=== PATIENT | female | born 1975 | race Caucasian/White ===

== ENCOUNTER 2017-05-19 11:27 | Inpatient (IN) | payer MEDICAID ==
[~2017-05-19] VITALS: Ht 165.1 cm; Wt 105.7 kg
[~2017-05-19 11:27] MED LIST: ALPR1TAB2 PO; [UNRECOGNIZED DRUG - CODE] PO
[2017-05-19 11:34] VITALS: BP 127/51
--- NOTE | 2017-05-19 11:46 | NUR ---
Pt taken to bed 7.
--- NOTE | 2017-05-19 12:04 | NUR ---
Patient being evaluated by Dr. Dubon at bedside.
--- NOTE | 2017-05-19 12:05 | NUR ---
42/F c/o headache x2 days and elevated blood sugar. BS 175 in triage. Pt c/o 6/10 pain. AOX4, ambulatory with steady gait. VSS.
[2017-05-19] MEDS ORDERED: ACETAMINOPHEN EXTRA STRENGTH 500 MG TAB PO ONE (12:10)
[2017-05-19 12:14] LABS: APPEARANCE,URINE CLEAR (CLEAR); BILIRUBIN,URINE NEGATIVE (NEGATIVE); BLOOD, URINE TRACE-I (NEGATIVE); COLOR,URINE YELLOW (YELLOW); LEUKOCYTE ESTERASE ,URINE NEGATIVE (NEGATIVE); NITRITE, URINE NEGATIVE (NEGATIVE); PROTEIN,URINE NEGATIVE (NEGATIVE); UGLUCOSE NEGATIVE (NEGATIVE); UROBILINOGEN,URINE 0.2 EU/dL (0.2 - 1)
[2017-05-19 12:22] LABS: ANION GAP 8.6 (8-16); CALCIUM 9.2 mg/dL (8.5-10.1); CARBON DIOXIDE 31.1 mmol/L (21-32); CREATININE 0.9 mg/dL (0.6-1.3); POTASSIUM 3.7 mmol/L (3.5-5.1)
[2017-05-19 12:24] LABS: BACTERIA,URINE OCCASSIONAL /HPF (None Seen); RBC,URINE 0-3 /HPF (0-5); WBC,URINE 0-2 /HPF (0-5)
--- NOTE | 2017-05-19 13:20 | NUR ---
Pt noted with an accucheck of 43. Dr. Dubon aware. Pt reports that prior to coming to ED her BS was 280 so she took a Glizpizde. Pt states "My doctor took me off of it but I took because my sugar was high." [place] juice given to patient. Pt drank 2 boxes of orange juice. Will continue to monitor patient. VSS.
--- NOTE | 2017-05-19 13:40 | NUR ---
Meal tray provided to patient.
[2017-05-19] MEDS ORDERED: NACL 0.9% 1,000 ML IV SCH (14:22)
--- NOTE | 2017-05-19 14:32 | NUR ---
X-Ray at bedside.
--- NOTE | 2017-05-19 14:32 | NUR ---
No nurse assigned to take report at this time. Room still being cleaned.
--- NOTE | 2017-05-19 15:02 | NUR ---
Patient will be admitted to care of Dr. Reza. Admited to TELE. Will go to room 112-B. Belongings list completed. Report to Charlene MERCEDES.
--- NOTE | 2017-05-19 15:07 | NUR ---
Pt transferred to Tele 112-B via [email or web address] on cardiac monitoring. All belongings sent with patient to room 112-A
[2017-05-19] MEDS ORDERED: DEXTROSE 50% 50 ML SYR IVP PRN (15:30)
[2017-05-19] MEDS ORDERED: BLOOD GLUCOSE MONITORING 1 DEV DEV FS SCH (15:30)
[2017-05-19 15:31] LABS: BASOPHILS # (AUTO) 0.5 K/uL (0.00-0.22); EOSINOPHILS # (AUTO) 0.2 K/uL (0-0.4); HEMATOCRIT 42.8 % (36-48); LYMPHOCYTES # (AUTO) 1.8 K/uL (2.5-16.5); MEAN CORPUSCULAR HEMOGLOBIN 30 pg (27-31); MEAN CORPUSCULAR HGB CONC 33 g/dL (33-37); MEAN CORPUSCULAR VOLUME 90 fL (80-94); MONOCYTES # (AUTO) 0.7 K/uL (0.8-1.0); NEUTROPHILS # (AUTO) 6.3 K/uL (1.8-7.7); PLATELET COUNT (AUTO) 242 K/uL (140-450); RED BLOOD CELL COUNT(AUTO) 4.75 MIL/uL (4.20-5.40); RED CELL DISTRIBUTION WIDTH 11.8 % (11.6-13.7); WHITE BLOOD COUNT (AUTO) 9.5 K/uL (4.8-10.8)
[2017-05-19] MEDS ORDERED: DEXT 5% / NACL 0.9% 500 ML IV SCH (15:35)
[2017-05-19 15:36] LABS: PARTIAL THROMBOPLASTIN TIME 23.2 secs (22-35.6); PROTHROMBIN TIME 10.2 secs (10.8-13.4)
--- NOTE | 2017-05-19 15:39 | NUR ---
RECEIVED PT FROM CHARGE NURSE REPORT. PT IN BED, AWAKE. ALERT ORIENTED X4. NO SOB, DENIES ANY PAIN OR DISCOMFORT AT THIS TIME. POSITIVE BOWEL SOUNDS NOTED ON FOUR QUADRANTS. PT AMBULATORY. SAFETY PRECAUTION IN PLACE. CALL LIGHT WITHIN REACH.
[2017-05-19 15:48] LABS: AMPHETAMINE, URINE NEG. ng/ml (NEG <=1000); BARBITURATE, URINE NEG. ng/ml (NEG <=200); BENZODIAZEPINE, URINE NEG. ng/mL (NEG <=200); CANNABINOID, URINE NEG. ng/mL (NEG <=50); COCAINE, URINE NEG. ng/mL (NEG <=300); OPIATE, URINE NEG. ng/mL (NEG <=2000); PHENCYCLIDINE SCREEN,URINE NEG. ng/mL (NEG <=25)
[2017-05-19 15:57] LABS: CHOL/HDL RATIO 3.1 (1-4.5); FREE T4 (FREE THYROXINE) 0.9 ng/dL (0.76-1.46); MAGNESIUM 2.1 mg/dL (1.8-2.4); PHOSPHORUS 3.6 mg/dL (2.5-4.9); THYROID STIMULATING HORMONE 2.21 uIU/mL (0.34-3.74)
[2017-05-19 16:00] VITALS: BP 148/76
[2017-05-19] MEDS: BLOOD GLUCOSE MONITORING 1 DEV DEV FS SCH ×4 (16:21→21:47)
[2017-05-19] MEDS ORDERED: ALPRAZolam 0.5 MG TAB PO SCH (19:20)
--- NOTE | 2017-05-19 19:42 | NUR ---
PT KEPT CLEAN DRY AND COMFORTABLE. NEEDS ATTENDED. NO SOB, DENIES ANY PAIN OR DISCOMFORT, DENIES ANY SIGNS AND SYMPTOMS OF HYPOGLYCEMIA. ENDORSED TO NEXT SHIFT ON STABLE CONDITION, FOR CONTINUITY OF CARE.
--- NOTE | 2017-05-19 19:43 | NUR ---
RECEIVED REPORT FROM AM NURSE. PT IN BED, AOX4, ABLE TO MAKE NEEDS KNOWN. NO COMPLAINTS OF PAIN AT THIS TIME. NO S/S OF DISTRESS. INITIAL ASSESSMENT DONE. WITH AN IV AT THE RIGHT AC 20, INTACT AND PATENT. DISCUSSED PLAN OF CARE WITH PATIENT, VERBALIZED UNDERSTANDING. WILL CONTINUE TO MONITOR. ALL NEEDS ATTENDED. CALL LIGHT WITHIN REACH.
[2017-05-19 20:00] VITALS: BP 131/61
--- NOTE | 2017-05-19 20:30 | NUR ---
INFORMED DR. CONTRERAS OF GLUCOSE [place], SAID THAT HE'D KEEP THE PT HYPERGLYCEMIC FOR RIGHT NOW. Addendum: 05/20/17 at 0110 by Buffy Blood RN ASKED IF THERE WAS AN INSULIN SCALE, SAID PT HAS BEEN HYPOGLYCEMIC FOR SOME TIME, SAID DEDRICK ORDER AN INSULIN SCALE.
[2017-05-19] MEDS: DOCUSATE SODIUM 100 MG GELCAP PO SCH (21:41)
--- NOTE | 2017-05-19 21:45 | NUR ---
DUE MEDS GIVEN, WELL TOLERATED. WILL CONTINUE TO MONITOR FOR ANY CHANGES.
[2017-05-20] VITALS: BP 108/62
--- NOTE | 2017-05-20 | NUR ---
VITAL SIGNS TAKEN, IN STABLE CONDITION. WILL CONTINUE TO MONITOR. ALL NEEDS ATTENDED. CALL LIGHT WITHIN REACH. SAFETY CHECKS IN PLACE.
[2017-05-20] MEDS: BLOOD GLUCOSE MONITORING 1 DEV DEV FS SCH ×5 (00:21→08:32)
--- NOTE | 2017-05-20 02:18 | NUR ---
MADE ROUNDS, PT IS ASLEEP. NO COMPLAINTS OF PAIN. NO S/S OF DISTRESS. WILL CONTINUE TO MONITOR. ALL NEEDS ATTENDED. CALL LIGHT WITHIN REACH.
[2017-05-20 04:00] VITALS: BP 109/54
--- NOTE | 2017-05-20 04:00 | NUR ---
VITAL SIGNS TAKEN. NO S/S OF DISTRESS. NO COMPLAINTS OF PAIN. WILL CONTINUE TO MONITOR. ALL NEEDS ATTENDED. CALL LIGHT WITHIN REACH.
--- NOTE | 2017-05-20 06:21 | NUR ---
MADE ROUNDS. PT ASLEEP, NO S/S OF DISTRESS. WILL CONTINUE TO MONITOR FOR ANY CHANGES.
--- NOTE | 2017-05-20 07:15 | NUR ---
ENDORSED TO AM SHIFT NURSE FOR CONTINUITY OF CARE, IN STABLE CONDITION.
--- NOTE | 2017-05-20 07:16 | NUR ---
RECEIVED PT IN BED. ASLEEP. AROUSABLE TO VOICE. ALERT ORIENTED X4. NO SOB DENIES ANY PAIN OF DISCOMFORT AT THIS TIME. DENIES ANY SIGNS AND SYMPTOMS OF HYPOGLYCEMIA NOTED. POSITIVE BOWEL SOUNDS NOTED ON FOUR QUADRANTS. SAFETY PRECAUTION IN PLACE. CALL LIGHT WITHIN REACH.
[2017-05-20 08:00] VITALS: BP 121/69
[2017-05-20] MEDS ORDERED: metFORMIN 500 MG TAB PO SCH (08:00)
--- NOTE | 2017-05-20 08:31 | NUR ---
PATIENT HAS BEEN SCREENED AND CATEGORIZED HIGH NUTRITION RISK. PATIENT WILL BE SEEN WITHIN 1-2 DAYS OF ADMISSION. 05/20/17-05/21/[address]
[2017-05-20] MEDS: DOCUSATE SODIUM 100 MG GELCAP PO SCH (08:33)
--- NOTE | 2017-05-20 08:35 | NUR ---
PT REFUSED TO TAKE COLACE SINCE SHE JUST HAD A BOWEL MOVEMENT THIS MORNING. SOFT IN CONSISTENCY.
[2017-05-20] MEDS ORDERED: BUPROPION HCL 100 MG PO SCH (09:00)
[2017-05-20] MEDS ORDERED: LORazepam 2 MG/ML VIAL IM/IVP SCH (11:17)
[2017-05-20 12:00] VITALS: BP 132/92
--- NOTE | 2017-05-20 12:23 | NUR ---
05/20/17 RD INITIAL ASSESSMENT COMPLETED PLEASE REFER TO NUTRITION ASSESSMENT UNDER CARE ACTIVITY FOR ESTIMATED NUTRITIONAL NEEDS. 1. CONTINUE 60 G CONSISTENT CARBOHYDRATE DIET 2. PROVIDE NUTRITION THERAPY EDUCATION NEEDED 3. RD TO FOLLOW-UP 3-5 DAYS; MODERATE RISK ANABELA LOVE RD
[2017-05-20] MEDS ORDERED: METF500T2 PO (13:02)
--- NOTE | 2017-05-20 14:00 | NUR ---
DISCHARGE INSTRUCTIONS AND TEACHINGS GIVEN, PROVIDED, AND EXPLAINED TO PT. REMINDED TO FOLLOW UP WITH PCP INDICATED ON DISCHARGE PAPERS. PT OFFERED TO HAVE PNA VACCINE, PT REFUSED. PT VERBALIZED UNDERSTANDING. SIGNED DISCHARGE PAPERS. NAME ARM BAND REMOVED. IV CANNULA REMOVED AND INTACT. PT REQUESTED TO CHECK HER BLOOD SUGAR BEFORE LEAVING. PRESCRIPTIONS PROVIDED. NO SOB NOTED DENIES ANY PAIN OR DISCOMFORT AT THIS TIME. PT WITH PAT AND DAUGHTER JOON. WHEELED PT OUTSIDE GOING TO THE PARKING LOT TO THEIR PRIVATE OWNED VEHICLE. PT DISCHARGED ON STABLE CONDITION.
== END 2017-05-20 14:00 | disposition home or self-care (01) | DRG 420 ==
LOC: MED 11:27 → MTU 14:28
PROVIDERS: ADMIT Family Medicine; ATTEND Family Medicine
DX: E11.649 Type 2 diabetes mellitus with hypoglycemia without coma (principal); D68.59 Other primary thrombophilia; E11.51 Type 2 diabetes mellitus with diabetic peripheral angiopathy without gangrene; I10 Essential (primary) hypertension; E66.9 Obesity, unspecified; Z68.38 Body mass index [BMI] 38.0-38.9, adult; Z79.899 Other long term (current) drug therapy; Z91.14 Patient's other noncompliance with medication regimen; Z72.89 Other problems related to lifestyle; Z28.21 Immunization not carried out because of patient refusal; Z79.84 Long term (current) use of oral hypoglycemic drugs
CPT/HCPCS: 36415; 71010; 80048; 80305; 81001; 81025; 82150; 82948; 83036; 83690; 83735; 84100; 84439; 84443; 85025; 85610; 85730; 87081; 93005; 99285; J7042; Q0092

== ENCOUNTER 2021-01-21 15:21 | Emergency (ER) | payer MEDICAID ==
[~2021-01-21] VITALS: Ht 165.1 cm; Wt 86.2 kg
[~2021-01-21 15:21] MED LIST changes: +METF500T2 PO; +[UNRECOGNIZED DRUG - CODE] PO; -[UNRECOGNIZED DRUG - CODE] PO
[2021-01-21 15:35] VITALS: BP 141/77
--- NOTE | 2021-01-21 15:42 | NUR ---
Pt wheelchair assisted from lobby to triage. BS 74. Pt given 2 [place] Juice boxes. made aware.
--- NOTE | 2021-01-21 15:43 | NUR ---
45F c/c feeling dizzy and shaky, pt states "I get like this when my blood sugar is low". She denies n/v/d, headache, confusion. She reports she's starting to feel better now that she had orange juice. She admits last meal was breakfast. [place] PMH: DM2 X4yrs SurHx: Tubal ligation
--- NOTE | 2021-01-21 16:13 | NUR ---
ERMD AT BEDSIDE EVALUATING PT
--- NOTE | 2021-01-21 16:30 | NUR ---
PT REFUSING BLOOD DRAW. Addendum: 01/21/21 at 1649 by [email or web address] PT REFUSING BLOOD DRAW. GEORGE MADE AWARE.
[2021-01-21 16:46] VITALS: BP 141/77
--- NOTE | 2021-01-21 16:46 | NUR ---
Patient does not wish to proceed with medical care recommended by DR. TOBIAS. Patient given information related to possible complications, up to and including , which could occur as a result of leaving hospital at this time. Patient verbalizes understanding of risks involved leaving against medical advice. Patient has signed AMA form.
== END 2021-01-21 16:46 | disposition left against medical advice (07) ==
LOC: MED 15:21
DX: E11.641 Type 2 diabetes mellitus with hypoglycemia with coma (principal); Z79.4 Long term (current) use of insulin; I10 Essential (primary) hypertension
CPT/HCPCS: 81002; 81025; 99282

== ENCOUNTER 2021-02-07 17:50 | Emergency (ER) | payer MEDICAID ==
[~2021-02-07] VITALS: Ht 165.1 cm; Wt 89.8 kg
[2021-02-07 17:53] VITALS: BP 148/101
--- NOTE | 2021-02-07 17:58 | NUR ---
PT AMBULATED TO BED 8 WITH STEADY GAIT
--- NOTE | 2021-02-07 18:07 | NUR ---
PT VOMITED IN EMESIS BAG THAT WAS PROVIDED. PT GIVEN NEW EMESIS BAG.
--- NOTE | 2021-02-07 18:20 | NUR ---
45 Y/O FEMALE BIB SELF FOR C/O EPIGASTRIC PAIN DESCRIBED PRESSURE AND FEELING BLOATED WITH N/V/BURPING X2 HOURS. UNKNOWN MG OF IBUPROFEN TAKEN 1 HR AGO. PT RATES PAIN NOW 12/20 BUT STATES THAT SHE FEELS MUCH BETTER NOW THAT SHE THREW UP. PT STATED SHE ATE CHILI EARLIER AND THEN S/S STARTED. PT DENIES N/V/D AT THIS TIME. PT A/O X4 WITH EVEN AND UNLABORED RESPIRATIONS. PT LAYING IN BED WITH BED IN LOWEST POSITION, BRAKES LOCKED, X1 SIDERAIL UP. MED HX: DM2 NKA
--- NOTE | 2021-02-07 18:21 | NUR ---
DR HANKINS AT BEDSIDE EVALUATING PT
[2021-02-07] MEDS ORDERED: METOCLOPRAMIDE 10 MG TAB PO ONE (18:40)
[2021-02-07] MEDS ORDERED: ONDA4TAB PO (18:44)
[2021-02-07] MEDS ORDERED: reglan (18:44)
--- NOTE | 2021-02-07 18:45 | NUR ---
PT AMBULATED TO RESTROOM FOR URINE COLLECTION SAMPLE
[2021-02-07 19:13] VITALS: BP 148/101
--- NOTE | 2021-02-07 19:14 | NUR ---
Patient discharged with v/s stable. Written and verbal after care instructions given and explained. Patient alert, oriented and verbalized understanding of instructions. Ambulatory with steady gait. All questions addressed prior to discharge. ID band removed. Patient advised to follow up with PMD. Rx of ONDANSETRON HCL given. Patient educated on indication of medication including possible reaction and side effects. Opportunity to ask questions provided and answered.
== END 2021-02-07 19:13 | disposition home or self-care (01) ==
LOC: MED 17:50
DX: R11.2 Nausea with vomiting, unspecified (principal); E11.9 Type 2 diabetes mellitus without complications; Z79.899 Other long term (current) drug therapy
CPT/HCPCS: 81025; 99283; J8597

== ENCOUNTER 2023-08-10 22:51 | Emergency (ER) | payer BC, MEDICAID, OTHER ==
[~2023-08-10] VITALS: Ht 165.1 cm; Wt 92.5 kg
[~2023-08-10 22:51] MED LIST changes: +METF-1139 PO; -METF500T2 PO; +ONDA4TAB PO; +reglan
[2023-08-10 23:03] VITALS: BP 119/64; PULSE 82; RESP 18; TEMP 97.9; O2SAT 100
[2023-08-11] MEDS ORDERED: ceFAZolin 1,000 MG VIAL IM ONE (00:10)
[2023-08-11] MEDS ORDERED: LIDOCAINE MPF 1% 5 ML ONE (00:38)
[2023-08-11] MEDS ORDERED: CEPH-588 PO (01:24)
== END 2023-08-11 01:26 | disposition home or self-care (01) ==
LOC: MED 22:51
DX: L03.114 Cellulitis of left upper limb (principal); E11.9 Type 2 diabetes mellitus without complications; Z79.4 Long term (current) use of insulin; Z79.899 Other long term (current) drug therapy
CPT/HCPCS: 96372; 99283; J0690; J2001

== ENCOUNTER 2024-03-27 22:36 | Emergency (ER) | payer BC, MEDICAID ==
[~2024-03-27] VITALS: Ht 165.1 cm; Wt 89.8 kg
[~2024-03-27 22:36] MED LIST changes: +CEPH-588 PO
[2024-03-27 22:57] VITALS: BP 121/81; PULSE 102; RESP 16; TEMP 96.9; O2SAT 99
[2024-03-27] MEDS: ONDANSETRON 4 MG TAB PO ONE (23:50)
[2024-03-27 23:59] LABS: APPEARANCE,URINE CLEAR (CLEAR); BILIRUBIN,URINE NEGATIVE (NEGATIVE); BLOOD, URINE NEGATIVE (NEGATIVE); COLOR,URINE YELLOW (YELLOW); LEUKOCYTE ESTERASE ,URINE TRACE (NEGATIVE); NITRITE, URINE NEGATIVE (NEGATIVE); PROTEIN,URINE NEGATIVE (NEGATIVE); UGLUCOSE NEGATIVE (NEGATIVE)
[2024-03-28 00:10] VITALS: O2SAT 99
[2024-03-28 00:13] LABS: BACTERIA,URINE 2+ /HPF (None Seen); RBC,URINE 0-5 /HPF (0-5); WBC,URINE 0-5 /HPF (0-5)
[2024-03-28] MEDS ORDERED: CIPR500T4 PO (00:31)
[2024-03-28] MEDS ORDERED: ATOR40TA PO (00:41)
[2024-03-28] MEDS ORDERED: ONDA-188 SL (00:41)
[2024-03-28] MEDS ORDERED: GLUC-633 MC (00:41)
== END 2024-03-28 00:45 | disposition home or self-care (01) ==
LOC: MED 22:36
DX: N39.0 Urinary tract infection, site not specified (principal); R11.2 Nausea with vomiting, unspecified; E11.9 Type 2 diabetes mellitus without complications; Z79.4 Long term (current) use of insulin; Z79.899 Other long term (current) drug therapy
CPT/HCPCS: 81001; 87086; 99283; Q0162

== ENCOUNTER 2024-05-16 02:38 | Emergency (ER) | payer BC ==
[~2024-05-16] VITALS: Ht 165.1 cm; Wt 90.7 kg
[~2024-05-16 02:38] MED LIST changes: +ATOR40TA PO; +CIPR500T4 PO; +GLUC-633 MC; +ONDA-188 SL
[2024-05-16 02:44] VITALS: BP 155/66; PULSE 92; RESP 14; TEMP 97.7; O2SAT 99
[2024-05-16] MEDS ORDERED: [UNRECOGNIZED DRUG - CODE] MC (02:45)
[2024-05-16] MEDS: ONDANSETRON 4 MG TAB PO ONE (03:01)
[2024-05-16 03:13] LABS: BASOPHILS # (AUTO) 0.1 K/uL (0.00-0.22); BASOPHILS % (AUTO) 0.6 % (0.0-2.0); EOSINOPHILS # (AUTO) 0.3 K/uL (0-0.4); EOSINOPHILS % (AUTO) 2.1 % (0.0-4.0); HEMATOCRIT 39.2 % (36-48); HEMOGLOBIN 13.1 g/dL (12.0-16.0); LYMPHOCYTES # (AUTO) 4.6 K/uL (2.5-16.5); LYMPHOCYTES % (AUTO) 36.7 % (20.5-51.1); MEAN CORPUSCULAR HEMOGLOBIN 30 pg (27-31); MEAN CORPUSCULAR HGB CONC 33 g/dL (33-37); MEAN CORPUSCULAR VOLUME 90.1 fL (80-94); MONOCYTES % (AUTO) 8.1 % (1.7-9.3); NEUTROPHILS # (AUTO) 6.6 K/uL (1.8-7.7); NEUTROPHILS % (AUTO) 52.5 % (42.2-75.2); PLATELET COUNT (AUTO) 300 K/uL (140-450); RED BLOOD CELL COUNT(AUTO) 4.35 MIL/uL (4.20-5.40); WHITE BLOOD COUNT (AUTO) 12.5 K/uL (4.8-10.8)
[2024-05-16 03:27] LABS: APPEARANCE,URINE CLEAR (CLEAR); BILIRUBIN,URINE NEGATIVE (NEGATIVE); BLOOD, URINE NEGATIVE (NEGATIVE); COLOR,URINE YELLOW (YELLOW); LEUKOCYTE ESTERASE ,URINE NEGATIVE (NEGATIVE); NITRITE, URINE NEGATIVE (NEGATIVE); PROTEIN,URINE NEGATIVE (NEGATIVE); UGLUCOSE NEGATIVE (NEGATIVE); UROBILINOGEN,URINE 0.2 EU/dL (0.2 - 1)
[2024-05-16 03:38] LABS: CALCIUM 8.8 mg/dL (8.5-10.1); POTASSIUM 3.5 mmol/L (3.5-5.1)
[2024-05-16 03:39] LABS: ALBUMIN 3.5 g/dL (3.4-5.0); TOTAL BILIRUBIN 0.2 mg/dL (0.0-1.0); TOTAL PROTEIN, SERUM 7.1 g/dL (6.4-8.2)
[2024-05-16 03:40] LABS: BACTERIA,URINE FEW /HPF (None Seen); RBC,URINE NONE SEEN /HPF (0-5); WBC,URINE 0-5 /HPF (0-5)
[2024-05-16 03:41] LABS: SQUAMOUS EPITHELIAL CELL,UR 4-10 (MOD) /LPF (0-3 (FEW))
[2024-05-16 03:48] LABS: ANION GAP 17.4 (8-16); CARBON DIOXIDE 24.1 mmol/L (21-32)
[2024-05-16 04:07] VITALS: BP 121/79; PULSE 89; RESP 18; TEMP 97.8; O2SAT 100
== END 2024-05-16 04:07 | disposition home or self-care (01) ==
LOC: MED 02:38
DX: E11.649 Type 2 diabetes mellitus with hypoglycemia without coma (principal); Z79.84 Long term (current) use of oral hypoglycemic drugs; Z79.1 Long term (current) use of non-steroidal anti-inflammatories (NSAID); Z79.899 Other long term (current) drug therapy
CPT/HCPCS: 36415; 80048; 80076; 81001; 85025; 99283; Q0162

== ENCOUNTER 2024-07-07 00:05 | Emergency (ER) | payer BC ==
[~2024-07-07] VITALS: Ht 165.1 cm; Wt 90.7 kg
[~2024-07-07 00:05] MED LIST changes: +[UNRECOGNIZED DRUG - CODE] MC
[2024-07-07 00:17] VITALS: BP 151/80; PULSE 94; RESP 18; TEMP 97.8; O2SAT 100
[2024-07-07] MEDS: HYDROcodone/APAP 5/325 MG 1 TAB TAB PO ONE (01:40)
[2024-07-07] MEDS ORDERED: ONDANSETRON 4 MG ODT ONE (01:42)
[2024-07-07] MEDS: ONDANSETRON 4 MG ODT PO ONE (01:43)
[2024-07-07] MEDS ORDERED: ACET-9525 PO (02:31)
== END 2024-07-07 02:38 | disposition home or self-care (01) ==
LOC: MED 00:05
DX: S60.011A Contusion of right thumb without damage to nail, initial encounter (principal); E11.9 Type 2 diabetes mellitus without complications; Z79.899 Other long term (current) drug therapy; W22.8XXA Striking against or struck by other objects, initial encounter; Y92.89 Other specified places as the place of occurrence of the external cause; Y93.89 Activity, other specified; Y99.8 Other external cause status
CPT/HCPCS: 73140; 99283; Q0162